=== PATIENT | female | born 1980 | race Caucasian/White ===

== ENCOUNTER → 2017-03-03 | Outpatient (CLI) | payer BC | LOC: COL.RAD 11:09 | DX: Z87.440 Personal history of urinary (tract) infections (principal); Z33.1 Pregnant state, incidental ==

== ENCOUNTER 2017-09-28 07:21 | Inpatient (IN) | payer BC ==
[~2017-09-28] VITALS: Ht 172.7 cm; Wt 85.0 kg
[2017-10-22] VITALS (47 sets, daily range): BP systolic 102–147; BP diastolic 56–78; PULSE 62–116; TEMP 98.1–98.8
[2017-10-22] MEDS ORDERED: PRENATAL (08:08)
[2017-10-22] MEDS ORDERED: NATURAL MAGNES200 MG PO (08:09)
[2017-10-22 08:18] LABS: BASO % 0.3 % (0.0-2.0); EOS # 0.1 (0.0-0.7); EOS % 1.1 % (0-4.0); GRAN # 5.3 (1.4-6.5); GRAN % 70.5 % (42.2-75.2); HEMOGLOBIN 12.4 g/dl (12.5-16.0); LYMPH # 1.5 (1.2-3.4); LYMPH % 20.4 % (20.0-51.0); MEAN CELL VOLUME 92 fl (80.0-100.0); MEAN CORPUSCULAR HEMOGLOBIN 32 pg (27.0-31.0); MEAN CORPUSCULAR HGB CONC 35 g/dl (33.0-37.0); MEAN PLATELET VOLUME 11.3 fl (7.4-10.4); MONO # 0.5 (0.1-0.6); PLATELET COUNT 174 K/mm3 (130-400); RED BLOOD COUNT 3.86 M/mm3 (4.10-5.30); REDCELL DISTRIBUTION WIDTH-CV 12.5 % (11.5-14.5)
[2017-10-22 08:25] LABS: HEMATOCRIT 35.5 % (37.0-47.0)
[2017-10-22] MEDS ORDERED: MOTRIN 800800 MG/TAB PO (16:13)
[2017-10-22] MEDS ORDERED: PERCOCET 325 MG1 TA2 PO (16:13)
[2017-10-23 00:10] VITALS: BP 99/64; PULSE 74; TEMP 98.5
[2017-10-23 04:00] VITALS: BP 107/69; PULSE 70; TEMP 98.1
[2017-10-23 07:21] VITALS: BP 101/58; PULSE 56; TEMP 97.8
[2017-10-23 11:35] VITALS: BP 112/76; PULSE 69; TEMP 97.8
[2017-10-23 16:25] VITALS: BP 100/56; PULSE 61; TEMP 97.9
== END 2017-10-23 20:20 | disposition home or self-care (01) | DRG 775 ==
LOC: OB 10-22 07:08 → LDR 10-22 07:08 → OB 10-22 21:30 → LDR 10-27 07:20
PROVIDERS: Obstetrics & Gynecology
PROC: 10E0XZZ Delivery of Products of Conception, External Approach (ICD-10-PCS; principal; 2017-10-22)
PROC: 3E033VJ Introduction of Other Hormone into Peripheral Vein, Percutaneous Approach (ICD-10-PCS; 2017-10-22)
DX: O75.89 Other specified complications of labor and delivery (principal); Z3A.39 39 weeks gestation of pregnancy; Z37.0 Single live birth
CPT/HCPCS: J2590; J7120

== ENCOUNTER → 2018-12-30 | Outpatient (CLI) | payer BC ==
[~2018-12-30] MED LIST: MOTRIN 800800 MG/TAB PO; NATURAL MAGNES200 MG PO; PERCOCET 325 MG1 TA2 PO; PRENATAL
== END ==
LOC: COL.RAD 13:54
DX: R05 Cough (principal)